=== PATIENT | male | born 1965 | race Caucasian/White ===

== ENCOUNTER 2024-01-31 06:15 | Day surgery (SDC) | payer BC, SELFPAY ==
[2024-01-31] VITALS (9 sets, daily range): BP systolic 112–130; BP diastolic 54–61
[2024-01-31] MEDS: TYLENOL 1000 MG PO (06:29)
[2024-01-31] MEDS: NORMOSOL-R 1000 IV (06:29)
--- NOTE | 2024-01-31 09:35 | OR.RPT ---
Operative Report
Operative Report
Primary Surgeon: Katey
Assisting Surgeon: Gosia HAN
Pre-op Diagnosis: Umbilical hernia
Post-op Diagnosis: Incarcerated incisional hernia
Procedure Performed: Robot assisted laparoscopic repair of incarcerated incisional hernia (rTAPP)
Anesthesia Type:GETA + TAP block
Specimen / Cultures: None
Estimated Blood Loss: 5cc
Complications: None immediate
Operative Findings: 5cm x 4xm defect with incarcerated fat, 15cm x 15cm bard soft mesh
Date of surgery: 01/31/24
Indications:� This 58M developed a symptomatic incarcerated incisional hernia. Robot assisted laparoscopic repair was planned.
Description of procedure:� The patient was taken to the operating room and positioned into supine position. The patient�s abdomen was prepped and draped in standard sterile fashion. A time-out was completed verifying correct patient, procedure,
site, positioning, and implants and special equipment prior to beginning this procedure.� The hernia was partially manually reduced after induction. A stab incision was made in the left upper quadrant, a Veress needle was inserted and proper
position was confirmed by aspiration and saline drop test. Following this, pneumoperitoneum was created with insufflation of carbon dioxide to 12 mmHg. Then a 8mm robotic trocar was inserted at the left anterior axillary line at the level of the
umbilicus. A laparoscope was inserted and the area of initial trocar entry and Veress needle placement were both inspected and no injuries were found. Two 8mm trocars were then placed a hand's breadth above and below the initial trocar under direct
visualization.
Attention was turned to the umbilicus. The peritoneum was incised several cm superior to the defect and a peritoneal flap was developed in transverse and caudad directions using blunt and sharp dissection and judicious electrocautery. The defect was
identified and measured as above. Fatty contents were reduced. The defect was closed with 0 PDS stratafix suture. A 15cm x 15cm bard soft mesh was passed into the abdomen. It was placed against the underside of the abdominal wall and secured in
place with 2-0 vicryl sutures at all four corners and fci along each side. The flap was closed over the mesh and secured with 2-0 monocryl stratafix suture. A 14g angiocath was used to decompress the preperitoneal space. After closure of several
small flap defects the flap sealed and suctioned nicely up to the abdominal wall. The mesh did not fold nor curl. A transversus abdominis plane block was then performed under laparoscopic vision with marcaine/decadron.
After ensuring adequate hemostasis, the trocars were removed and the pneumoperitoneum allowed to escape. The trocar incisions were closed at the skin level using 4-0 monocryl and topical skin adhesive. All counts were correct and the patient
tolerated the procedure well and was taken to the postanesthesia care unit in stable condition.
The assistance of Marco CANTOR was required due to the complexity of the procedure. During the procedure she assisted with retraction, resection, and closure of the wound.
== END 2024-01-31 11:42 | disposition home or self-care (01) ==
LOC: SDS 06:15
PROVIDERS: ATTENDING PHYSICIAN Surgery
DX: K43.0 Incisional hernia with obstruction, without gangrene (principal)
CPT/HCPCS: 49592; C1781

== ENCOUNTER → 2024-05-12 07:10 | Day surgery (SDC) | payer BC, SELFPAY ==
--- NOTE | 2024-05-12 09:22 | ITS.CL.CARDI ---
Pharmacy Technician Trainee - Cardioversion
Cardioversion
Procedure Report:
Date of Procedure: 05/12/24
Procedure: Cardioversion
Indication: Symptomatic atrial fibrillation
Performing Physician: Jameel Morrison MD
Technique: The patient was brought to the holding area. Signed informed consent was obtained. A time out was called and performed. The patient was anesthetized by the anesthesia service. Anticoagulation status was reviewed and appropriate. R2 pads
were placed anteriorly and posteriorly. A 200 J synchronized biphasic shock restored normal sinus rhythm without significant bradycardia. There were no complications.
Conclusion: Uncomplicated cardioversion from atrial fibrillation to sinus rhythm.
Recommendation: Routine post cardioversion care. Continue medical terminologist anticoagulation.
== END ==
LOC: CATH 07:10
PROVIDERS: ATTENDING PHYSICIAN Internal Medicine Cardiovascular Disease; FAMILY PHYSICIAN Family Medicine; OTHER PHYSICIAN Internal Medicine Cardiovascular Disease
DX: I48.0 Paroxysmal atrial fibrillation (principal); G47.33 Obstructive sleep apnea (adult) (pediatric); E66.9 Obesity, unspecified; Z68.37 Body mass index [BMI] 37.0-37.9, adult; Z79.01 Long term (current) use of anticoagulants
CPT/HCPCS: 92960; 93005

== ENCOUNTER → 2024-05-19 08:05 | Outpatient (REF) | payer BC, SELFPAY ==
--- NOTE | 2024-05-19 11:36 | CARDSERVLU ---
Echocardiogram with Lumason completed after protocol screening completed. Allergies verified.
Patent IV site: __LH___
IV site flushed with 0.9% NaCl pre and post administration.
Diluted bolus method utilized to enhance visualization of ventricular bolaños.
Total volume given: __4__ mL
Patient tolerated all procedures well without complications.
== END ==
LOC: RCS 08:05
PROVIDERS: ATTENDING PHYSICIAN Nurse Practitioner; FAMILY PHYSICIAN Family Medicine
DX: I48.0 Paroxysmal atrial fibrillation (principal)
CPT/HCPCS: 93306; Q9950

== ENCOUNTER 2025-01-11 06:39 | Day surgery (SDC) | payer BC, SELFPAY | END 2025-01-11 15:38 | disposition home or self-care (01) | LOC: GI 06:39 | PROVIDERS: ATTENDING PHYSICIAN Internal Medicine | DX: Z12.11 Encounter for screening for malignant neoplasm of colon (principal); K57.30 Diverticulosis of large intestine without perforation or abscess without bleeding; K64.8 Other hemorrhoids; K63.89 Other specified diseases of intestine | CPT/HCPCS: 45380; 88305 ==

== ENCOUNTER → 2025-04-05 06:45 | Outpatient (REF) | payer BC, SELFPAY | LOC: RCS 06:45 | PROVIDERS: ATTENDING PHYSICIAN Internal Medicine Cardiovascular Disease; FAMILY PHYSICIAN Family Medicine | DX: I48.0 Paroxysmal atrial fibrillation (principal) | CPT/HCPCS: 78452; 93017; A9500 ==

== ENCOUNTER 2025-06-22 09:05 | Day surgery (SDC) | payer BC, SELFPAY ==
--- NOTE | 2025-06-22 10:13 | ITS.CL.CARDI ---
Baby Registry Sales Consultant - Cardioversion
Cardioversion
Procedure Report:
Date of Procedure: 2024
Procedure: Cardioversion
Indication: Symptomatic atrial fibrillation
Performing Physician: Prieto Rodriguez DO, FACC
Technique: The patient was brought to the holding area. Signed informed consent was obtained. A time out was called and performed. The patient was anesthetized by the anesthesia service. Anticoagulation status was reviewed and appropriate. R2 pads
were placed anteriorly and posteriorly. A 250 J synchronized biphasic shock restored normal sinus rhythm without significant bradycardia. There were no complications.
Conclusion: Uncomplicated cardioversion from atrial fibrillation to sinus rhythm.
Recommendation: Routine post cardioversion care. Continue long wall mining machine tender anticoagulation.
== END 2025-06-22 11:00 | disposition home or self-care (01) ==
LOC: CATH 09:05
PROVIDERS: ATTENDING PHYSICIAN Nuclear Medicine Nuclear Cardiology; FAMILY PHYSICIAN Family Medicine; OTHER PHYSICIAN Internal Medicine Cardiovascular Disease
DX: I48.0 Paroxysmal atrial fibrillation (principal); Z79.01 Long term (current) use of anticoagulants; E78.00 Pure hypercholesterolemia, unspecified; G47.33 Obstructive sleep apnea (adult) (pediatric); E66.9 Obesity, unspecified; Z79.899 Other long term (current) drug therapy
CPT/HCPCS: 92960; 93005